=== PATIENT | male | born 1955 | race Caucasian/White ===

== ENCOUNTER 2018-11-30 06:02 | Inpatient (IN) | payer BC ==
[~2018-11-30 06:02] MED LIST: Acetaminophen 325 MG Tab PO SCH; CARBIDOPA PO SCH; LEVODOPA PO SCH; Lactated Ringers 1,000 ML IV SCH; Lidocaine 1%/Sod Bicarbonate in NS 8.4% 1 ML Syringe IDERM PRN; Pregabalin 25 MG Cap PO SCH; Sodium Chloride 0.9% 10 ML Syringe FLUSH PRN; oxyCODONE ER 10 MG TAB.ER PO SCH
[2018-11-30] MEDS ORDERED: Iodine/Sodium Iodide 2% Tincture 30 ML Bottle ONE (06:38)
[2018-11-30] MEDS ORDERED: Vancomycin 1 GM SDV ONE (06:38)
[2018-11-30] MEDS ORDERED: Bupivacaine 0.25% 10 ML SDV ONE ×3 (06:38→07:01)
[2018-11-30] MEDS ORDERED: ceFAZolin 1 GM Vial ONE ×2 (06:38→07:05)
[2018-11-30] MEDS ORDERED: Ondansetron 4 MG/2 ML SDV ONE (07:05)
[2018-11-30] MEDS ORDERED: Lactated Ringers 1,000 ML ONE (07:05)
[2018-11-30] MEDS ORDERED: Propofol 200 MG/20 ML SDV ONE ×2 (07:05→07:38)
[2018-11-30] MEDS ORDERED: Ketorolac 30 MG/ML SDV ONE (07:05)
[2018-11-30] MEDS ORDERED: Lidocaine 1% 4 ML ONE (07:06)
[2018-11-30] MEDS ORDERED: Midazolam 1 MG/ML 2 ML SDV ONE (07:06)
[2018-11-30] MEDS ORDERED: Ropivacaine 0.5% 5 MG/ML 30 ML SDV ONE (07:31)
[2018-11-30] MEDS ORDERED: EPINEPHrine 1 MG/1 ML Amp ONE (07:31)
--- NOTE | 2018-11-30 08:20 | PCM.PREANE ---
Preanesthetic Assessment - Procedure Proposed Procedure: Right Total Knee Arthroplasty - Anesthesia/Transfusion/Family Hx Anesthesia History: Prior Anesthesia Reaction Type of Anesthesia Reaction: Other (see below) ("I woke up angry") Transfusion History: No Prior Transfusion(s) - Review of Systems General: No Symptoms Pulmonary: No Symptoms Cardiovascular: Edema (Bilateral Edema noted to legs. Pitting Edema. Chronic/ unchanged per patient. ) Gastrointestinal: No Symptoms, Constipation (Concerned regarding postoperative constipation. Dr. Camargo/Mary, PAC aware. Plan in place to manage.) Neurological: Numbness (at times he notices numbness in his left leg. Worsened by sitting in one place to long. ), Pre-Existing Deficit (Parkinsons with tremors. Took his medication this moring. Lower back surgery in 1984, disc removal. ) Other: Reports: Anxiety - Physical Assessment NPO Status Date: 11/29/18 NPO Status Time: 21:00 Vital Signs: Last Vital Signs Temp 36.9 C 11/30/18 06:15 Pulse 72 11/30/18 06:15 Resp 16 11/30/18 06:15 BP 126/59 L 11/30/18 06:15 Pulse Ox 95 11/30/18 06:15 Height: 1.8 m Weight: 113.852 kg ASA Class: 3 Mental Status: Alert & Oriented x3 Airway Class: Mallampati = 3 Dentition: Reports: [place](s) (Caps noted to several of his front teeth. One temporary cap in place on a molar. All secure. ) Thyro-Mental Finger Breadths: 2 Mouth Opening Finger Breadths: 3 ROM/Head Extension: Full Lungs: Clear to Auscultation, Normal Respiratory Effort Cardiovascular: Regular Rate, Regular Rhythm - Lab Values: Laboratory Last Values PT 10.9 SECONDS (9.7-12.0) 11/30/18 06:30 INR 1.00 11/30/18 06:30 APTT 27 SECONDS (22-31) 11/30/18 06:30 MRSA (PCR) Negative 11/25/18 12:56 - Allergies Allergies/Adverse Reactions: Allergies Allergy/AdvReac Type Severity Reaction Status Date / Time No Known Allergies Allergy Verified 11/27/18 11:25 - Anesthesia Plan Pre-Op Medication Ordered: Anxiolytic - Acknowledgements Anesthesia Type Planned: Spinal, Regional Block (Post operative Adductor Canal Block for pain control. ) Pt an Appropriate Candidate for the Planned Anesthesia: Yes Alternatives and Risks of Anesthesia Discussed w Pt/Guardian: Yes Pt/Guardian Understands and Agrees with Anesthesia Plan: Yes Additional Comments: Dr. Dubois called regarding history of abnormal stress test and edema of lower extremities. Stress test was indeterminant per report, he has good daily activity as a rancher, he did see cardiology and had an ECHO done (results reviewed)EF was 60%, Dr. Dubois does not feel the patient needs to see cardiology prior to surgery. He denies chest pain/cardiac symptoms, EKG was done Sinus Rhythm at 68 bpm. Jg agrees this morning and would like to proceed with surgery as planned. He does report sleeping in a recliner which is more comfortable with his Parkinson disease. He is agreeable to a spinal anesthetic. PreAnesthesia Questionnaire HEENT History: Reports: None Cardiovascular History: Reports: High Cholesterol Respiratory History: Reports: Other (See Below) Other Respiratory History: wheezing Genitourinary History: Reports: Urinary Incontinence, Other (See Below) Other Genitourinary History: frequency BAR ROLLER History: Reports: None Musculoskeletal History: Reports: Osteoarthritis Neurological History: Reports: Parkinson's Psychiatric History: Reports: Anxiety Endocrine/Metabolic History: Reports: None Hematologic History: Reports: None Immunologic History: Reports: None Oncologic (Cancer) History: Reports: None - Past Surgical History Head Surgeries/Procedures: Reports: None HEENT Surgical History: Reports: None Cardiovascular Surgical History: Reports: None Respiratory Surgical History: Reports: None GI Surgical History: Reports: Colonoscopy Female Surgical History: Reports: None Male Surgical History: Reports: None Endocrine Surgical History: Reports: None Other Neurological Surgeries/Procedures: back surgery- discectomy Musculoskeletal Surgical History: Reports: None Oncologic Surgical History: Reports: None Dermatological Surgical History: Reports: Other (See Below) - SUBSTANCE USE Smoking Status *Q: Former Smoker Tobacco Use Within Last Twelve Months: Snuff/Dip Recreational Drug Use History: No - HOME MEDS Home Medications: Home Meds Aspirin [[place] Aspirin] 81 mg PO DAILY 11/27/18 [History] Carbidopa/Levodopa [Carbidopa-Levodopa 25-250] 1 tab PO QID 11/27/18 [History] Cholecalciferol (Vitamin D3) [Vitamin D3] 5,000 unit PO DAILY 11/27/18 [History] Losartan [Cozaar] 50 mg PO DAILY 11/27/18 [History] Magnesium Oxide [Magnesium] 400 mg PO DAILY 11/27/18 [History] Sertraline HCl 100 mg PO DAILY 11/27/18 [History] Simvastatin 20 mg PO DAILY 11/27/18 [History] rOPINIRole HCl [Ropinirole ER] 12 mg PO QAM 11/27/18 [History] - CURRENT (IN HOUSE) MEDS Current Meds: Current Medications Acetaminophen (Tylenol) 975 mg PO ONETIME [facility] Stop: 11/30/18 13:00 Last Admin: 11/30/18 06:26 Dose: 975 mg Bisacodyl (Dulcolax) 5 mg PO DAILY PRN PRN Reason: Constipation Cyclobenzaprine HCl (Flexeril) 10 mg PO BID PRN PRN Reason: Spasms Docusate Sodium (Colace) 100 mg PO BID FLY Famotidine (Pepcid) 20 mg PO Q12H [facility] Lactated Ringer's (Ringers, Lactated) 1,000 mls @ 125 mls/hr IV ASDIRECTED [facility] Stop: 11/30/18 23:00 Last Admin: 11/30/18 06:49 Dose: 125 mls/hr Cefazolin Sodium/Dextrose 2 gm (/ Premix) 50 mls @ 100 mls/hr IV Q8H [facility] Stop: 12/01/18 07:29 Ketorolac Tromethamine (Toradol) 15 mg IVPUSH Q6H PRN PRN Reason: Pain Lidocaine/Sodium Bicarbonate (Buffered Lidocaine 1% In Ns 8.4%) 0.25 ml IDERM ONETIME PRN PRN Reason: Prior to IV Start Stop: 11/30/18 18:00 Last Admin: 11/30/18 06:49 Dose: 0.25 ml Magnesium Hydroxide (Milk Of Magnesia) 30 ml PO BID PRN PRN Reason: Constipation Morphine Sulfate (Morphine) 2 mg IVPUSH Q2H PRN PRN Reason: Breakthrough Pain Naloxone HCl (Narcan) 0.1 mg IVPUSH Q5M PRN PRN Reason: Oversedation Ondansetron HCl (Zofran) 4 mg IVPUSH Q6H PRN PRN Reason: Nausea/Vomiting Oxycodone HCl (Oxycontin) 10 mg PO ONETIME [facility] Stop: 11/30/18 13:00 Last Admin: 11/30/18 06:27 Dose: 10 mg Oxycodone/Acetaminophen (Percocet 325-5 Mg) 1 - 2 tab PO Q4H PRN PRN Reason: Pain Pregabalin (Lyrica) 50 mg PO ONETIME [facility] Stop: 11/30/18 13:00 Last Admin: 11/30/18 06:26 Dose: 50 mg Rivaroxaban (Xarelto) 10 mg PO DAILY [facility] Senna (Senna) 8.6 mg PO BID PRN PRN Reason: Constipation Sodium Chloride (Saline Flush) 10 ml FLUSH ASDIRECTED PRN PRN Reason: Keep Vein Open Stop: 11/30/18 23:00 Discontinued Medications Acetaminophen (Tylenol) 975 mg PO ONETIME FLY Bupivacaine HCl (Sensorcaine-Mpf 0.25%) Confirm Administered Dose 10 ml .ROUTE .STK-MED ONE Stop: 11/30/18 06:39 Bupivacaine HCl (Sensorcaine-Mpf 0.25%) Confirm Administered Dose 20 ml .ROUTE .STK-MED ONE Stop: 11/30/18 06:59 Bupivacaine HCl (Sensorcaine-Mpf 0.25%) Confirm Administered Dose 10 ml .ROUTE .STK-MED ONE Stop: 11/30/18 07:02 Cefazolin Sodium (Ancef) Confirm Administered Dose 2 gm .ROUTE .STK-MED ONE Stop: 11/30/18 06:39 Cefazolin Sodium (Ancef) Confirm Administered Dose 2 gm .ROUTE .STK-MED ONE Stop: 11/30/18 07:06 Morphine Sulfate 8 mg/Epinephrine HCl 0.3 mg/Cefuroxime Sodium 750 mg/Ketorolac Tromethamine 30 mg/Sodium Chloride 27.9 ml 0 mg .XX ONETIME ONE Stop: 11/30/18 07:46 Epinephrine HCl (Adrenalin) Confirm Administered Dose 1 mg .ROUTE .STK-MED ONE Stop: 11/30/18 07:32 Lactated Ringer's (Ringers, Lactated) Confirm Administered Dose 1,000 mls @ as directed .ROUTE .STK-MED ONE Stop: 11/30/18 07:06 Lidocaine HCl (Xylocaine-Mpf 1%) Confirm Administered Dose 4 mls @ as directed .ROUTE .STK-MED ONE Stop: 11/30/18 07:07 Iodine (Iodine 2% Mild Tincture) Confirm Administered Dose 30 ml .ROUTE .STK- MED ONE Stop: 11/30/18 06:39 Ketorolac Tromethamine (Toradol) Confirm Administered Dose 30 mg .ROUTE .STK- MED ONE Stop: 11/30/18 07:06 Midazolam HCl (Versed 1 Mg/Ml) Confirm Administered Dose 2 mg .ROUTE .STK-MED ONE Stop: 11/30/18 07:07 Ondansetron HCl (Zofran) Confirm Administered Dose 4 mg .ROUTE .STK-MED ONE Stop: 11/30/18 07:06 Oxycodone HCl (Oxycontin) 10 mg PO ONETIME FLY Propofol (Diprivan 20 Ml) Confirm Administered Dose 400 mg .ROUTE .ST-MED ONE Stop: 11/30/18 07:06 Propofol (Diprivan 20 Ml) Confirm Administered Dose 200 mg .ROUTE .STK-MED ONE Stop: 11/30/18 07:39 Ropivacaine (Naropin 0.5%) Confirm Administered Dose 30 ml .ROUTE .ST-MED ONE Stop: 11/30/18 07:32 Tranexamic Acid (Cyklokapron) Confirm Administered Dose 1,000 mg .ROUTE .STK- MED ONE Stop: 11/30/18 06:38 Vancomycin HCl (Vancomycin) Confirm Administered Dose 1 gm .ROUTE .STK-MED ONE Stop: 11/30/18 06:39
[2018-11-30] MEDS ORDERED: Ondansetron 4 MG/2 ML SDV IVPUSH PRN ×2 (08:37→09:00)
[2018-11-30] MEDS ORDERED: diphenhydrAMINE 50 MG/ML SDV IVPUSH PRN (08:37)
[2018-11-30] MEDS: Morphine 8 MG, EPINEPHrine 0.3 MG, Cefuroxime 750 MG, Ketorolac 30 MG, Sodium Chloride ... ONE ×10 (08:45→15:06)
[2018-11-30] MEDS ORDERED: Naloxone 0.4 MG/ML SDV IVPUSH PRN (09:00)
[2018-11-30] MEDS ORDERED: Sennosides 8.6 MG Tab PO PRN (09:00)
[2018-11-30] MEDS ORDERED: Bisacodyl 5 MG Tab PO PRN (09:00)
[2018-11-30] MEDS ORDERED: Magnesium Hydroxide 400 MG/5 ML Susp 30 ML Cup PO PRN (09:00)
[2018-11-30] MEDS ORDERED: Morphine 2 MG/ML Syringe IVPUSH PRN (09:00)
--- NOTE | 2018-11-30 09:39 | PCM.POSTAN ---
POST ANESTHESIA ASSESSMENT - MENTAL STATUS Mental Status: Alert, Oriented - VITAL SIGNS Vital Signs: Last Vital Signs Temp 36.9 C 11/30/18 06:15 Pulse 72 11/30/18 06:15 Resp 16 11/30/18 06:15 BP 126/59 L 11/30/18 06:15 Pulse Ox 95 11/30/18 06:15 - RESPIRATORY Respiratory Status: Respiratory Rate WNL, Airway Patent, O2 Saturation Stable, Supplemental Oxygen - CARDIOVASCULAR CV Status: Pulse Rate WNL, Blood Pressure Stable - GASTROINTESTINAL GI Status: No Symptoms - PAIN Pain Score: 0 - POST OP HYDRATION Hydration Status: Adequate & Stable
--- NOTE | 2018-11-30 09:42 | PCM.SN ---
- Free Text/Narrative Note: Right selective femoral nerve block at the adductor canal for post-procedure pain control Time Out: 923 Start: 923 End: 929 Chart reviewed. Consent signed. Questions answered. Appropriate monitors applied. Time out performed. Right mid-shaft femur evaluated with ultrasound. Scanning medially femur, I was able to identify the femoral artery in the adductor canal. The saphenous nerve was lateral to the artery. The skin was prepped lateral to the ultrasound probe with chlorahexadine. The 21ga 4 insulated block needle was inserted under direct ultrasound guidance into the adductor canal. 20mL of 0.5% ropivacaine with 1:200,000 epinephrine was injected cirmcumferentially about the nerve with intermittent negative aspiration every 5mL. Patient tolerated the procedure well. No complications noted. See pictures on progress note and vital signs on nurses notes. Block completed postoperatively. Luis Hernandez CRNA
--- NOTE | 2018-11-30 10:35 | CR ---
Right knee: AP and lateral views of the right knee were obtained. Comparison: No prior knee exam. Knee prosthesis is seen. Components are aligned. Underlying bony structures are intact. Soft tissue air is noted from the surgical procedure. Impression: 1. Satisfactory postoperative radiographic appearance of recently placed right knee prosthesis. Diagnostic code #2
[2018-11-30] MEDS: Acetaminophen/oxyCODONE 325-5 MG Tab PO PRN ×2 (12:43→18:06)
[2018-11-30] MEDS ORDERED: Carbidopa/Levodopa 25-250 MG TAB PO SCH (13:00)
[2018-11-30] MEDS: ceFAZolin 2 GM in Premix Bag 1 BAG IV SCH (15:00)
[2018-11-30] MEDS: LEVODOPA PO SCH ×3 (15:01→20:29)
[2018-11-30] MEDS: CARBIDOPA PO SCH ×3 (15:01→20:29)
[2018-11-30] MEDS: Ketorolac 15 MG/ML SDV IVPUSH PRN (18:05)
[2018-11-30] MEDS: Famotidine 20 MG Tab PO SCH (20:27)
[2018-11-30] MEDS: Docusate Sodium 100 MG Cap PO SCH (20:28)
[2018-11-30] MEDS ORDERED: Simvastatin 20 MG Tab PO SCH (21:00)
[2018-12-01] MEDS: ceFAZolin 2 GM in Premix Bag 1 BAG IV SCH ×2 (00:16→06:01)
[2018-12-01] MEDS: CARBIDOPA PO SCH ×4 (00:17→15:44)
[2018-12-01] MEDS: LEVODOPA PO SCH ×4 (00:17→15:44)
[2018-12-01] MEDS: Cyclobenzaprine 10 MG Tab PO PRN ×2 (00:26→12:48)
[2018-12-01] MEDS: Acetaminophen/oxyCODONE 325-5 MG Tab PO PRN ×3 (03:05→13:09)
--- NOTE | 2018-12-01 07:13 | PCM.CONS ---
H&P History of Present Illness - General Date of Service: 12/01/18 Admit Problem/Dx: Admission Diagnosis/Problem Admission Diagnosis/Problem Osteoarthritis of knee Source of Information: Patient, Family, Old Records, Provider, RN Notes Reviewed History Limitations: Reports: Physical Impairment - History of Present Illness Initial Comments - Free Text/Narative: This is a 62 yo white male with past medical hx/o HTN, HLD, OA/DJD, PD, RLS, OAB , Depression and Class II Obesity who recently underwent RTKA. He is doing relatively well POD#1. His pain is controlled and denies any acute issues. His Hgb is stable at 13.9. The hospitalist services were consulted for post operative care. - Related Data Allergies/Adverse Reactions: Allergies Allergy/AdvReac Type Severity Reaction Status Date / Time No Known Allergies Allergy Verified 11/30/18 10:46 Home Medications: Home Meds Aspirin [[place] Aspirin] 81 mg PO DAILY 11/27/18 [History] Cholecalciferol (Vitamin D3) [Vitamin D3] 5,000 unit PO DAILY 11/27/18 [History] Losartan [Cozaar] 50 mg PO DAILY 11/27/18 [History] Magnesium Oxide [Magnesium] 500 mg PO DAILY 11/27/18 [History] Sertraline HCl 100 mg PO DAILY 11/27/18 [History] Simvastatin 20 mg PO DAILY 11/27/18 [History] rOPINIRole HCl [Ropinirole ER] 12 mg PO QAM 11/27/18 [History] Carbidopa/Levodopa [Carbidopa-Levodopa 25-250] 1 tab PO 5XDAY 11/30/18 [History] Acetaminophen/oxyCODONE [Percocet 325-5 MG] 1 - 2 tab PO Q4H PRN #60 tablet [Rx] Bisacodyl [Dulcolax] 5 mg PO DAILY PRN tablet 12/01/18 [Rx] Cyclobenzaprine [Flexeril] 10 mg PO BID PRN #30 tablet 12/01/18 [Rx] Docusate Sodium [Colace] 100 mg PO BID cap 12/01/18 [Rx] Famotidine [Pepcid] 20 mg PO Q12H tablet 12/01/18 [Rx] Magnesium Hydroxide [Milk of Magnesia] 30 ml PO BID PRN cup 12/01/18 [Rx] Rivaroxaban [Xarelto] 10 mg PO DAILY #30 tablet 12/01/18 [Rx] Sennosides [Senna] 8.6 mg PO BID PRN tablet 12/01/18 [Rx] Past Medical History HEENT History: Reports: None Cardiovascular History: Reports: High Cholesterol Respiratory History: Reports: Other (See Below) Other Respiratory History: wheezing Genitourinary History: Reports: Urinary Incontinence, Other (See Below) Other Genitourinary History: frequency 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 Musculoskeletal History: Reports: Osteoarthritis Neurological History: Reports: Parkinson's Psychiatric History: Reports: Anxiety Endocrine/Metabolic History: Reports: None Hematologic History: Reports: None Immunologic History: Reports: None Oncologic (Cancer) History: Reports: None - Past Surgical History Head Surgeries/Procedures: Reports: None HEENT Surgical History: Reports: None Cardiovascular Surgical History: Reports: None Respiratory Surgical History: Reports: None GI Surgical History: Reports: Colonoscopy Male Surgical History: Reports: None Endocrine Surgical History: Reports: None Other Neurological Surgeries/Procedures: back surgery- discectomy Musculoskeletal Surgical History: Reports: None Oncologic Surgical History: Reports: None Dermatological Surgical History: Reports: Other (See Below) Social & Family History - Family History Family Medical History: Noncontributory - Tobacco Use Smoking Status *Q: Never Smoker Used Tobacco, but Quit: Yes Month/Year Tobacco Last Used: 1974 Second Hand Smoke Exposure: No - Caffeine Use Caffeine Use: Reports: None - Alcohol Use Days Per Week of Alcohol Use: 2 Number of Drinks Per Day: 3 Total Drinks Per Week: 6 - Recreational Drug Use Recreational Drug Use: No Drug Use in Last 12 Months: No H&P Review of Systems - Review of Systems: Review Of Systems: See Below General: Denies: Fever, Chills, Fatigue HEENT: Reports: No Symptoms Pulmonary: Denies: Shortness of Breath Cardiovascular: Denies: Chest Pain, Dyspnea on Exertion, Lightheadedness Gastrointestinal: Denies: Abdominal Pain, Nausea, Vomiting Musculoskeletal: Reports: No Symptoms Skin: Reports: No Symptoms Psychiatric: Denies: Depression, Anxiety Neurological: Reports: Difficulty Walking, Weakness, Gait Disturbance. Denies: Confusion Hematologic/Lymphatic: Reports: No Symptoms Immunologic: Reports: No Symptoms Exam - Exam Exam: See Below - Vital Signs Vital Signs: Last Vital Signs Temp 37.1 C 12/01/18 03:04 Pulse 81 12/01/18 03:04 Resp 20 12/01/18 03:04 BP 139/83 12/01/18 03:04 Pulse Ox 92 L 12/01/18 03:04 Weight: 116.165 kg - Exam General: Alert, Oriented, Cooperative HEENT: Conjunctiva Clear, EACs Clear, EOMI, Hearing Intact, Mucosa Moist & [place] , Nares Patent, Normal Nasal Septum, Posterior Pharynx Clear, Pupils Equal, Pupils Reactive Neck: Supple, Trachea Midline Lungs: Clear to Auscultation, Normal Respiratory Effort, Decreased Breath Sounds Cardiovascular: Regular Rate, Regular Rhythm GI/Abdominal Exam: Normal Bowel Sounds, Soft, Non-Tender, No Organomegaly, No Distention, No Abnormal Bruit (Male) Exam: Deferred Rectal (Males) Exam: Deferred Back Exam: Normal Inspection, Decreased Range of Motion Extremities: Normal Inspection, Normal Range of Motion, Non-Tender, No Pedal Edema, Normal Capillary Refill Peripheral Pulses: 2+: Dorsalis Pedis (L), Dorsalis Pedis (R) Skin: Warm, Dry, Intact Skin Alteration Location (Drawings Not To Scale): 1 - dressed, covered and wrapped with polar care Neuro Extensive - Mental Status: Oriented x3, Normal Cognition, Memory Intact Neuro Extensive - Motor, Sensory, Reflexes: CN II-XII Intact, Abnormal Gait, Tremor Psychiatric: Alert, Normal Mood. No: Normal Affect - Patient Data Lab Results Last 24 hrs: Laboratory Results - last 24 hr 12/01/18 12/01/18 Range/Units 05:30 05:30 WBC 5.96 (4.23-9.07) K/mm3 RBC 4.53 L (4.63-6.08) M/mm3 Hgb 13.9 (13.7-17.5) gm/dl Hct 42.6 (40.1-51.0) % MCV 94.0 H (79.0-92.2) fl MCH 30.7 (25.7-32.2) pg MCHC 32.6 (32.2-35.5) g/dl RDW Std Deviation 46.1 H (35.1-43.9) fL Plt Count 190 (163-337) K/mm3 MPV 9.5 (9.4-12.3) fl Sodium 137 (136-145) mEq/L Potassium 4.2 (3.5-5.1) mEq/L Chloride 102 (98-107) mEq/L Carbon Dioxide 26 (21-32) mEq/L Anion Gap 13.2 (5-15) BUN 23 H (7-18) mg/dL Creatinine 1.2 (0.7-1.3) mg/dL Est Cr Clr Drug Dosing 66.24 mL/min Estimated GFR (MDRD) > 60 (>60) mL/min BUN/Creatinine Ratio 19.2 H (14-18) Glucose 106 (80-115) mg/dL Calcium 8.3 L (8.5-10.1) mg/dL Total Bilirubin 1.0 (0.2-1.0) mg/dL AST 17 (15-37) U/L Alkaline Phosphatase 64 (46-116) U/L Total Protein 7.1 (6.4-8.2) g/dl Albumin 3.4 (3.4-5.0) g/dl Globulin 3.7 gm/dL Albumin/Globulin Ratio 0.9 L (1-2) Result Diagrams: 12/01/18 05:30 12/01/18 05:30 Consult PN Assessment/Plan POD#: 1 Procedures: Procedures ASSAY OF BLOOD/URIC ACID (11/04/18) ASSAY OF CK (CPK) (06/24/13) ASSAY OF LACTIC ACID (11/04/18) ASSAY OF PSA TOTAL (06/24/13) ASSAY THYROID STIM HORMONE (07/12/14) C-REACTIVE PROTEIN (11/04/18) CARDIOVASCULAR STRESS TEST (01/12/18) COMPLETE CBC W/AUTO DIFF WBC (11/04/18) COMPREHEN METABOLIC PANEL (11/04/18) GLYCOSYLATED HEMOGLOBIN TEST (11/04/18) HT MUSCLE IMAGE SPECT MULT (01/12/18) LACTATE (LD) (LDH) ENZYME (06/24/13) LIPID PANEL (11/04/18) ROUTINE VENIPUNCTURE (11/04/18) UR ALBUMIN QUANTITATIVE (07/12/14) UR ALBUMIN SEMIQUANTITATIVE (06/24/13) URINALYSIS AUTO W/O SCOPE (11/04/18) URINALYSIS AUTO W/SCOPE (07/12/14) VITAMIN B-12 (11/04/18) Problem List Initiated/Reviewed/Updated: Yes Plan: Assessment: Acute: RTKA - POD #1 - Defer Management to Primary Team Post-Operative Care - Patient is clinically and hemodynamically stable - Hgb is at 13.9 - He is drinking and eating well Chronic: HTN, HLD, OA/DJD, PD, RLS, OAB/Urinary Incontinence, Depression and Obesity Class II Plan: From the hospitalist standpoint, patient is doing relatively well. We recommend to continue current treatment and resume home medications. Any changes or further recommendations will be based on the patient course. Thank you for the opportunity to participate in the management of this patient. We will follow him along with you. Requesting Provider: Dr. Camargo Date Consult Requested: 11/30/18 Reason for Consult: Post Operative Care Patient History Reviewed: Yes Admission H&P Reviewed: Yes Notified Requestor: Yes Time Spent (in minutes): 15
[2018-12-01] MEDS ORDERED: ROPINIROLE 12 MG PO SCH (08:00)
--- NOTE | 2018-12-01 08:16 | PCM48HPAN ---
Post Anesthesia Note - EVALUATION WITHIN 48HRS OF ANESTHETIC Vital Signs in Normal Range: Yes Patient Participated in Evaluation: Yes Respiratory Function Stable: Yes Airway Patent: Yes Cardiovascular Function Stable: Yes Hydration Status Stable: Yes Pain Control Satisfactory: Yes Nausea and Vomiting Control Satisfactory: Yes Mental Status Recovered: Yes (pain on and off- getting ready to shower) Vital Signs: Last Vital Signs Temp 98.8 F 12/01/18 03:04 Pulse 81 12/01/18 03:04 Resp 20 12/01/18 03:04 BP 139/83 12/01/18 03:04 Pulse Ox 92 L 12/01/18 03:04
--- NOTE | 2018-12-01 08:37 | PCM.SURGPN ---
- General Info Date of Service: 12/01/18 POD#: 1 Functional Status: Reports: Tolerating Diet, Ambulating, Urinating, Incentive Spirometry - Patient Data Vitals - Most Recent: Last Vital Signs Temp 98.8 F 12/01/18 03:04 Pulse 81 12/01/18 03:04 Resp 20 12/01/18 03:04 BP 139/83 12/01/18 03:04 Pulse Ox 92 L 12/01/18 03:04 Weight - Most Recent: 256 lb 1.6 oz I&O - Last 24 Hours: Intake & Output 11/30/18 12/01/18 12/01/18 22:59 06:59 14:59 Intake Total 1710 450 Output Total 180 600 Balance 1530 -150 Lab Results Last 24 Hrs: Laboratory Results - last 24 hr 12/01/18 12/01/18 Range/Units 05:30 05:30 WBC 5.96 (4.23-9.07) K/mm3 RBC 4.53 L (4.63-6.08) M/mm3 Hgb 13.9 (13.7-17.5) gm/dl Hct 42.6 (40.1-51.0) % MCV 94.0 H (79.0-92.2) fl MCH 30.7 (25.7-32.2) pg MCHC 32.6 (32.2-35.5) g/dl RDW Std Deviation 46.1 H (35.1-43.9) fL Plt Count 190 (163-337) K/mm3 MPV 9.5 (9.4-12.3) fl Sodium 137 (136-145) mEq/L Potassium 4.2 (3.5-5.1) mEq/L Chloride 102 (98-107) mEq/L Carbon Dioxide 26 (21-32) mEq/L Anion Gap 13.2 (5-15) BUN 23 H (7-18) mg/dL Creatinine 1.2 (0.7-1.3) mg/dL Est Cr Clr Drug Dosing 66.24 mL/min Estimated GFR (MDRD) > 60 (>60) mL/min BUN/Creatinine Ratio 19.2 H (14-18) Glucose 106 (80-115) mg/dL Calcium 8.3 L (8.5-10.1) mg/dL Total Bilirubin 1.0 (0.2-1.0) mg/dL AST 17 (15-37) U/L ALT 8 L (16-63) U/L Alkaline Phosphatase 64 (46-116) U/L Total Protein 7.1 (6.4-8.2) g/dl Albumin 3.4 (3.4-5.0) g/dl Globulin 3.7 gm/dL Albumin/Globulin Ratio 0.9 L (1-2) Med Orders - Current: Current Medications Aspirin (Aspirin) 81 mg PO DAILY [facility] Bisacodyl (Dulcolax) 5 mg PO DAILY PRN PRN Reason: Constipation Cholecalciferol (Vitamin D3) 5,000 unit PO DAILY [facility] Cyclobenzaprine HCl (Flexeril) 10 mg PO BID PRN PRN Reason: Spasms Last Admin: 12/01/18 00:26 Dose: 10 mg Docusate Sodium (Colace) 100 mg PO BID [facility] Last Admin: 11/30/18 20:28 Dose: 100 mg Famotidine (Pepcid) 20 mg PO Q12H [facility] Last Admin: 11/30/18 20:27 Dose: 20 mg Ketorolac Tromethamine (Toradol) 15 mg IVPUSH Q6H PRN PRN Reason: Pain Last Admin: 11/30/18 18:05 Dose: 15 mg Magnesium Hydroxide (Milk Of Magnesia) 30 ml PO BID PRN PRN Reason: Constipation Last Admin: 12/01/18 05:52 Dose: 30 ml Magnesium Oxide (Magnesium Oxide) 400 mg PO DAILY [facility] Morphine Sulfate (Morphine) 2 mg IVPUSH Q2H PRN PRN Reason: Breakthrough Pain Naloxone HCl (Narcan) 0.1 mg IVPUSH Q5M PRN PRN Reason: Oversedation Ondansetron HCl (Zofran) 4 mg IVPUSH Q6H PRN PRN Reason: Nausea/Vomiting Oxycodone/Acetaminophen (Percocet 325-5 Mg) 1 - 2 tab PO Q4H PRN PRN Reason: Pain Last Admin: 12/01/18 03:05 Dose: 1 tab Ropinirole Er 12 Mg 0 each PO QAM [facility] Carbidopa/Levodopa (25-250 Mg Tab Ptom) 0 each PO 1500,2000 [facility] Last Admin: 11/30/18 20:29 Dose: 1 each Carbidopa/Levodopa (25-250 Mg Tab Ptom) 0 each PO 0100,0600,1000 [facility] Last Admin: 12/01/18 05:52 Dose: 1 each Rivaroxaban (Xarelto) 10 mg PO DAILY [facility] Senna (Senna) 8.6 mg PO BID PRN PRN Reason: Constipation Sertraline HCl (Zoloft) 100 mg PO DAILY [facility] Simvastatin (Zocor) 20 mg PO BEDTIME [facility] Last Admin: 11/30/18 20:29 Dose: 20 mg Discontinued Medications Acetaminophen (Tylenol) 975 mg PO ONETIME [facility] Acetaminophen (Tylenol) 975 mg PO ONETIME [facility] Stop: 11/30/18 13:00 Last Admin: 11/30/18 06:26 Dose: 975 mg Bupivacaine HCl (Sensorcaine-Mpf 0.25%) Confirm Administered Dose 10 ml .ROUTE .STK-MED ONE Stop: 11/30/18 06:39 Last Admin: 11/30/18 08:45 Dose: 30 ml Bupivacaine HCl (Sensorcaine-Mpf 0.25%) Confirm Administered Dose 20 ml .ROUTE .STK-MED ONE Stop: 11/30/18 06:59 Bupivacaine HCl (Sensorcaine-Mpf 0.25%) Confirm Administered Dose 10 ml .ROUTE .STK-MED ONE Stop: 11/30/18 07:02 Cefazolin Sodium (Ancef) Confirm Administered Dose 2 gm .ROUTE .STK-MED ONE Stop: 11/30/18 06:39 Last Admin: 11/30/18 08:41 Dose: 2 gm Cefazolin Sodium (Ancef) Confirm Administered Dose 2 gm .ROUTE .STK-MED ONE Stop: 11/30/18 07:06 Morphine Sulfate 8 mg/Epinephrine HCl 0.3 mg/Cefuroxime Sodium 750 mg/Ketorolac Tromethamine 30 mg/Sodium Chloride 27.9 ml 0 mg .XX ONETIME ONE Stop: 11/30/18 07:46 Last Admin: 11/30/18 15:06 Dose: Not Given Diphenhydramine HCl (Benadryl) 25 mg IVPUSH Q6H PRN PRN Reason: Pruritis Stop: 11/30/18 16:00 Epinephrine HCl (Adrenalin) Confirm Administered Dose 1 mg .ROUTE .STK-MED ONE Stop: 11/30/18 07:32 Lactated Ringer's (Ringers, Lactated) 1,000 mls @ 125 mls/hr IV ASDIRECTED [facility] Stop: 11/30/18 23:00 Last Admin: 11/30/18 06:49 Dose: 125 mls/hr Cefazolin Sodium/Dextrose 2 gm (/ Premix) 50 mls @ 100 mls/hr IV Q8H [facility] Stop: 12/01/18 07:29 Last Admin: 12/01/18 06:01 Dose: 100 mls/hr Lactated Ringer's (Ringers, Lactated) Confirm Administered Dose 1,000 mls @ as directed .ROUTE .STK-MED ONE Stop: 11/30/18 07:06 Lidocaine HCl (Xylocaine-Mpf 1%) Confirm Administered Dose 4 mls @ as directed .ROUTE .STK-MED ONE Stop: 11/30/18 07:07 Iodine (Iodine 2% Mild Tincture) Confirm Administered Dose 30 ml .ROUTE .STK- MED ONE Stop: 11/30/18 06:39 Last Admin: 11/30/18 08:39 Dose: 18 ml Ketorolac Tromethamine (Toradol) Confirm Administered Dose 30 mg .ROUTE .STK- MED ONE Stop: 11/30/18 07:06 Lidocaine/Sodium Bicarbonate (Buffered Lidocaine 1% In Ns 8.4%) 0.25 ml IDERM ONETIME PRN PRN Reason: Prior to IV Start Stop: 11/30/18 18:00 Last Admin: 11/30/18 06:49 Dose: 0.25 ml Midazolam HCl (Versed 1 Mg/Ml) Confirm Administered Dose 2 mg .ROUTE .STK-MED ONE Stop: 11/30/18 07:07 Ondansetron HCl (Zofran) Confirm Administered Dose 4 mg .ROUTE .STK-MED ONE Stop: 11/30/18 07:06 Ondansetron HCl (Zofran) 4 mg IVPUSH ONETIME PRN PRN Reason: Nausea/Vomiting Stop: 11/30/18 13:00 Oxycodone HCl (Oxycontin) 10 mg PO ONETIME [facility] Oxycodone HCl (Oxycontin) 10 mg PO ONETIME [facility] Stop: 11/30/18 13:00 Last Admin: 11/30/18 06:27 Dose: 10 mg Carbidopa/Levodopa (25-250 Mg Tab) 0 each PO QID [facility] Last Admin: 11/30/18 11:44 Dose: 1 each Pregabalin (Lyrica) 50 mg PO ONETIME [facility] Stop: 11/30/18 13:00 Last Admin: 11/30/18 06:26 Dose: 50 mg Propofol (Diprivan 20 Ml) Confirm Administered Dose 400 mg .ROUTE .STK-MED ONE Stop: 11/30/18 07:06 Propofol (Diprivan 20 Ml) Confirm Administered Dose 200 mg .ROUTE .STK-MED ONE Stop: 11/30/18 07:39 Ropivacaine (Naropin 0.5%) Confirm Administered Dose 30 ml .ROUTE .STK-MED ONE Stop: 11/30/18 07:32 Sodium Chloride (Saline Flush) 10 ml FLUSH ASDIRECTED PRN PRN Reason: Keep Vein Open Stop: 11/30/18 23:00 Tranexamic Acid (Cyklokapron) Confirm Administered Dose 1,000 mg .ROUTE .STK- MED ONE Stop: 11/30/18 06:38 Last Admin: 11/30/18 08:52 Dose: 1,000 mg Vancomycin HCl (Vancomycin) Confirm Administered Dose 1 gm .ROUTE .STK-MED ONE Stop: 11/30/18 06:39 Last Admin: 11/30/18 08:49 Dose: 1 gm - Exam Wound/Incisions: Dressing Dry and Intact General: Alert, Cooperative, No Acute Distress Lungs: Normal Respiratory Effort Extremities: Other (Refugio's negative for RLE. Mod effusion right knee. ) - Problem List Review Problem List Initiated/Reviewed/Updated: Yes - My Orders Last 24 Hours: Active Orders 24 hr Category Date Time Status Patient Status [ADT] Routine ADT 11/30/18 09:55 Active Cooling Warming Measures [RC] ASDIRECTED Care 11/30/18 08:37 Inactive Oxygen Therapy [RC] ASDIRECTED Care 11/30/18 08:37 Active Pulse Oximetry [RC] ASDIRECTED Care 11/30/18 08:37 Active Ready for Discharge [RC] PER UNIT ROUTINE Care 12/01/18 08:35 Ordered Vital Signs [RC] Q15M Care 11/30/18 08:37 Inactive Regular Diet [DIET] Diet 11/30/18 Lunch Active Acetaminophen/oxyCODONE [Percocet 325-5 MG] Med 11/30/18 09:00 Active 1 - 2 tab PO Q4H PRN Aspirin Med 12/01/18 09:00 Active 81 mg PO DAILY Bisacodyl [Dulcolax] Med 11/30/18 09:00 Active 5 mg PO DAILY PRN Cholecalciferol (Vitamin D3) [Vitamin D3] Med 12/01/18 09:00 Active 5,000 unit PO DAILY Cyclobenzaprine [Flexeril] Med 11/30/18 09:00 Active 10 mg PO BID PRN Docusate Sodium [Colace] Med 11/30/18 21:00 Active 100 mg PO BID Famotidine [Pepcid] Med 11/30/18 21:00 Active 20 mg PO Q12H Ketorolac [Toradol] Med 11/30/18 09:00 Active 15 mg IVPUSH Q6H PRN Magnesium Hydroxide [Milk of Magnesia] Med 11/30/18 09:00 Active 30 ml PO BID PRN Magnesium Oxide Med 12/01/18 09:00 Active 400 mg PO DAILY Morphine Med 11/30/18 09:00 Active 2 mg IVPUSH Q2H PRN Naloxone [Narcan] Med 11/30/18 09:00 Active 0.1 mg IVPUSH Q5M PRN Ondansetron [Zofran] Med 11/30/18 09:00 Active 4 mg IVPUSH Q6H PRN Patient's Own Medication [Ptom] Med 12/01/18 01:00 Active 0 each PO 0100,0600,1000 Patient's Own Medication [Ptom] Med 11/30/18 12:30 Active 0 each PO 1500,2000 Patient's Own Medication [Ptom] Med 12/01/18 08:00 Active 0 each PO QAM Rivaroxaban [Xarelto] Med 12/01/18 09:00 Active 10 mg PO DAILY Sennosides [Senna] Med 11/30/18 09:00 Active 8.6 mg PO BID PRN Sertraline [Zoloft] Med 12/01/18 09:00 Active 100 mg PO DAILY Simvastatin [Zocor] Med 11/30/18 21:00 Active 20 mg PO BEDTIME Medication Orders Aspirin (Aspirin) 81 mg PO DAILY [facility] Bisacodyl (Dulcolax) 5 mg PO DAILY PRN PRN Reason: Constipation Cholecalciferol (Vitamin D3) 5,000 unit PO DAILY [facility] Cyclobenzaprine HCl (Flexeril) 10 mg PO BID PRN PRN Reason: Spasms Last Admin: 12/01/18 00:26 Dose: 10 mg Docusate Sodium (Colace) 100 mg PO BID [facility] Last Admin: 11/30/18 20:28 Dose: 100 mg Famotidine (Pepcid) 20 mg PO Q12H [facility] Last Admin: 11/30/18 20:27 Dose: 20 mg Ketorolac Tromethamine (Toradol) 15 mg IVPUSH Q6H PRN PRN Reason: Pain Last Admin: 11/30/18 18:05 Dose: 15 mg Magnesium Hydroxide (Milk Of Magnesia) 30 ml PO BID PRN PRN Reason: Constipation Last Admin: 12/01/18 05:52 Dose: 30 ml Magnesium Oxide (Magnesium Oxide) 400 mg PO DAILY [facility] Morphine Sulfate (Morphine) 2 mg IVPUSH Q2H PRN PRN Reason: Breakthrough Pain Naloxone HCl (Narcan) 0.1 mg IVPUSH Q5M PRN PRN Reason: Oversedation Ondansetron HCl (Zofran) 4 mg IVPUSH Q6H PRN PRN Reason: Nausea/Vomiting Oxycodone/Acetaminophen (Percocet 325-5 Mg) 1 - 2 tab PO Q4H PRN PRN Reason: Pain Last Admin: 12/01/18 03:05 Dose: 1 tab Admin: 11/30/18 18:06 Dose: 2 tab Admin: 11/30/18 12:43 Dose: 2 tab Ropinirole Er 12 Mg 0 each PO QAM [facility] Carbidopa/Levodopa (25-250 Mg Tab Ptom) 0 each PO 1500,2000 [facility] Last Admin: 11/30/18 20:29 Dose: 1 each Admin: 11/30/18 15:01 Dose: 1 each Admin: 11/30/18 15:01 Dose: Not Given Carbidopa/Levodopa (25-250 Mg Tab Ptom) 0 each PO 0100,0600,1000 [facility] Last Admin: 12/01/18 05:52 Dose: 1 each Admin: 12/01/18 00:17 Dose: 1 each Rivaroxaban (Xarelto) 10 mg PO DAILY [facility] Senna (Senna) 8.6 mg PO BID PRN PRN Reason: Constipation Sertraline HCl (Zoloft) 100 mg PO DAILY [facility] Simvastatin (Zocor) 20 mg PO BEDTIME [facility] Last Admin: 11/30/18 20:29 Dose: 20 mg - Assessment Assessment (Free Text/Narrative):: POD#1 - right TKA - Plan Plan (Free Text/Narrative):: 1. Xarelto, TEDs, frequent mobility. 2. Hgb 13.9. 3. Discharge to home today if cleared by Hospitalist service and therapies. The pt's case was discussed with Dr. Camargo.
[2018-12-01] MEDS: Famotidine 20 MG Tab PO SCH (08:48)
[2018-12-01] MEDS: Docusate Sodium 100 MG Cap PO SCH (08:49)
[2018-12-01] MEDS ORDERED: Aspirin 81 MG Tab.Chew PO SCH (09:00)
[2018-12-01] MEDS ORDERED: Magnesium Oxide 400 MG Tab PO SCH (09:00)
[2018-12-01] MEDS ORDERED: Rivaroxaban 10 MG Tab PO SCH (09:00)
[2018-12-01] MEDS ORDERED: Cholecalciferol (Vitamin D3) 5,000 UNIT Tab PO SCH (09:00)
[2018-12-01] MEDS ORDERED: Sertraline 50 MG Tab PO SCH (09:00)
[2018-12-01] MEDS: Ketorolac 15 MG/ML SDV IVPUSH PRN (09:32)
--- NOTE | 2018-12-02 09:30 | PCM.DCSUM1 ---
Discharge Summary - Hospital Course Brief History: Jg is a 62 yo male who underwent right TKA with Dr. Camargo on . The procedure was completed under spinal anesthesia with MAC. The pt tolerated the procedure well and was admitted to the Medical-Surgical Unit. The pt received Ancef jarod-operatively. He participated in P.T. and O.T. and progressed well. He was allowed to WBAT and used a FWW for mobility. The pt's surgical wound was dressed with a Mepilex dressing and remained clean and dry. On POD#1, the pt was started on Xarelto 10mg PO daily for VTE prophylaxis. The pt used TEDs and SCDs also. On POD#1, the pt's hemoglobin was 13.9. Medical management was provided by the Hospitalist service and the pt's hospital course was uneventful. On POD#1, the pt was deemed appropriate for discharge to home with his . - Discharge Data Discharge Date: 12/01/18 Discharge Disposition: Home, Self-Care 01 Condition: Good - Referral to Home Health Primary Care Physician: Castro Tovar MD - Patient Summary/Data Consults: Consultations 11/30/18 06:36 OT Evaluation and Treatment [CONS] Routine PT Evaluation and Treatment [CONS] Routine 11/30/18 06:43 Consult to Physician [CONS] Routine - Patient Instructions Diet: Usual Diet as Tolerated Activity: Apply Ice, As Tolerated, Elevate Extremity, Full Weight Bearing Driving: Do Not Drive Showering/Bathing: May Shower Wound/Incision Care: Keep Operative Site/Wound Site Clean and Dry, Do NOT Change Dressing Notify Provider of: Fever, Increased Pain, Swelling and Redness, Drainage, Nausea and/or Vomiting Other/Special Instructions: Please get up and moving around EVERY HOUR while awake. This helps to prevent blood clots. Please use your walker and have help with mobility as needed. Take a short walk in your home every hour while awake. The Xarelto blood thinner medication daily as directed. At home, please complete the exercises that you learned during the Hospital stay. Schedule for physical therapy. Use the pain medication as needed. The medication may cause drowsiness and constipation. Contact your primary care provider for instructions if you are constipated. You may use a stool softener like docusate sodium or Colace 100mg twice daily and/or a laxative like Miralax daily for constipation. Increase your water and fiber intake while you are using the pain medication. Discontinue use of the pain medication as soon as able. Please do not use other medications that may cause drowsiness (other pain medications, anxiety pills, cold medications, sleeping pills, etc) while using the prescription pain medication. Do not use alcohol while using the pain medication. You may use acetaminophen or Tylenol for pain management, however, please ensure you are not using over 4000 mg or 4 grams of acetaminophen per day from all sources. Your pain medication has 325mg of acetaminophen per tablet. At this time, please do not use ibuprofen (Motrin, Advil) or naproxen (Aleve) for pain management as you are using the Xarelto. When the Xarelto course is completed in 4 to 6 weeks, you could use ibuprofen or naproxen for pain management (if this is allowed by your primary care provider). Wear the NASREEN hose during the day and you may remove these at night. Elevate the limb to decrease swelling. Place ice to the area often. Place a towel between your skin and the blue pad. Use the incentive spirometer often. Take deep breaths throughout the day. Please keep the dressing in place until follow-up. Notify the Clinic if the dressing becomes saturated. Increase your protein intake while you are healing. If you have diabetes, please closely monitor your blood sugars and notify your primary care provider with abnormal values. Elevated blood sugars increases the risk of infection. Call the Clinic with questions or concerns - [phone]. - Discharge Plan *PRESCRIPTION DRUG MONITORING PROGRAM REVIEWED*: No *COPY OF PRESCRIPTION DRUG MONITORING REPORT IN PATIENT ELIEZER: No Prescriptions/Med Rec: Acetaminophen/oxyCODONE [Percocet 325-5 MG] 1 - 2 tab PO Q4H PRN #60 tablet PRN Reason: Pain Cyclobenzaprine [Flexeril] 10 mg PO BID PRN #30 tablet PRN Reason: Spasms Rivaroxaban [Xarelto] 10 mg PO DAILY #30 tablet Home Medications: Home Meds Aspirin [[place] Aspirin] 81 mg PO DAILY 11/27/18 [History] Cholecalciferol (Vitamin D3) [Vitamin D3] 5,000 unit PO DAILY 11/27/18 [History] Losartan [Cozaar] 50 mg PO DAILY 11/27/18 [History] Magnesium Oxide [Magnesium] 500 mg PO DAILY 11/27/18 [History] Sertraline HCl 100 mg PO DAILY 11/27/18 [History] Simvastatin 20 mg PO DAILY 11/27/18 [History] rOPINIRole HCl [Ropinirole ER] 12 mg PO QAM 11/27/18 [History] Carbidopa/Levodopa [Carbidopa-Levodopa 25-250] 1 tab PO 5XDAY 11/30/18 [History] Acetaminophen/oxyCODONE [Percocet 325-5 MG] 1 - 2 tab PO Q4H PRN #60 tablet [Rx] Bisacodyl [Dulcolax] 5 mg PO DAILY PRN tablet 12/01/18 [Rx] Cyclobenzaprine [Flexeril] 10 mg PO BID PRN #30 tablet 12/01/18 [Rx] Docusate Sodium [Colace] 100 mg PO BID cap 12/01/18 [Rx] Famotidine [Pepcid] 20 mg PO Q12H tablet 12/01/18 [Rx] Magnesium Hydroxide [Milk of Magnesia] 30 ml PO BID PRN cup 12/01/18 [Rx] Rivaroxaban [Xarelto] 10 mg PO DAILY #30 tablet 12/01/18 [Rx] Sennosides [Senna] 8.6 mg PO BID PRN tablet 12/01/18 [Rx] Patient Handouts: Total Knee Replacement, [id number] Referrals: Mary Franklin PA-C [Physician Project Management Analyst] - (Please follow-up with [facility] on December 08 at 1:15am, December 16 at 2:45, & January 08 11:45.) - Discharge Summary/Plan Comment DC Time >30 min.: No - Patient Data Vitals - Most Recent: Last Vital Signs Temp 98.6 F 12/01/18 13:07 Pulse 90 12/01/18 13:07 Resp 19 12/01/18 13:07 BP 128/62 12/01/18 13:07 Pulse Ox 92 L 12/01/18 13:07 Weight - Most Recent: 256 lb 1.6 oz I&O - Last 24 hours: Intake & Output 12/01/18 12/02/18 12/02/18 22:59 06:59 14:59 Intake Total 360 Balance 360 Med Orders - Current: Current Medications Discontinued Medications Acetaminophen (Tylenol) 975 mg PO ONETIME [facility] Acetaminophen (Tylenol) 975 mg PO ONETIME [facility] Stop: 11/30/18 13:00 Last Admin: 11/30/18 06:26 Dose: 975 mg Aspirin (Aspirin) 81 mg PO DAILY [facility] Last Admin: 12/01/18 08:46 Dose: 81 mg Bisacodyl (Dulcolax) 5 mg PO DAILY PRN PRN Reason: Constipation Bupivacaine HCl (Sensorcaine-Mpf 0.25%) Confirm Administered Dose 10 ml .ROUTE .STK-MED ONE Stop: 11/30/18 06:39 Last Admin: 11/30/18 08:45 Dose: 30 ml Bupivacaine HCl (Sensorcaine-Mpf 0.25%) Confirm Administered Dose 20 ml .ROUTE .STK-MED ONE Stop: 11/30/18 06:59 Bupivacaine HCl (Sensorcaine-Mpf 0.25%) Confirm Administered Dose 10 ml .ROUTE .STK-MED ONE Stop: 11/30/18 07:02 Cefazolin Sodium (Ancef) Confirm Administered Dose 2 gm .ROUTE .STK-MED ONE Stop: 11/30/18 06:39 Last Admin: 11/30/18 08:41 Dose: 2 gm Cefazolin Sodium (Ancef) Confirm Administered Dose 2 gm .ROUTE .STK-MED ONE Stop: 11/30/18 07:06 Cholecalciferol (Vitamin D3) 5,000 unit PO DAILY [facility] Last Admin: 12/01/18 08:48 Dose: 5,000 unit Morphine Sulfate 8 mg/Epinephrine HCl 0.3 mg/Cefuroxime Sodium 750 mg/Ketorolac Tromethamine 30 mg/Sodium Chloride 27.9 ml 0 mg .XX ONETIME ONE Stop: 11/30/18 07:46 Last Admin: 11/30/18 15:06 Dose: Not Given Cyclobenzaprine HCl (Flexeril) 10 mg PO BID PRN PRN Reason: Spasms Last Admin: 12/01/18 12:48 Dose: 10 mg Diphenhydramine HCl (Benadryl) 25 mg IVPUSH Q6H PRN PRN Reason: Pruritis Stop: 11/30/18 16:00 Docusate Sodium (Colace) 100 mg PO BID [facility] Last Admin: 12/01/18 08:49 Dose: 100 mg Epinephrine HCl (Adrenalin) Confirm Administered Dose 1 mg .ROUTE .STK-MED ONE Stop: 11/30/18 07:32 Famotidine (Pepcid) 20 mg PO Q12H [facility] Last Admin: 12/01/18 08:48 Dose: 20 mg Lactated Ringer's (Ringers, Lactated) 1,000 mls @ 125 mls/hr IV ASDIRECTED [facility] Stop: 11/30/18 23:00 Last Admin: 11/30/18 06:49 Dose: 125 mls/hr Cefazolin Sodium/Dextrose 2 gm (/ Premix) 50 mls @ 100 mls/hr IV Q8H [facility] Stop: 12/01/18 07:29 Last Admin: 12/01/18 06:01 Dose: 100 mls/hr Lactated Ringer's (Ringers, Lactated) Confirm Administered Dose 1,000 mls @ as directed .ROUTE .STK-MED ONE Stop: 11/30/18 07:06 Lidocaine HCl (Xylocaine-Mpf 1%) Confirm Administered Dose 4 mls @ as directed .ROUTE .STK-MED ONE Stop: 11/30/18 07:07 Iodine (Iodine 2% Mild Tincture) Confirm Administered Dose 30 ml .ROUTE .STK- MED ONE Stop: 11/30/18 06:39 Last Admin: 11/30/18 08:39 Dose: 18 ml Ketorolac Tromethamine (Toradol) 15 mg IVPUSH Q6H PRN PRN Reason: Pain Last Admin: 12/01/18 09:32 Dose: 15 mg Ketorolac Tromethamine (Toradol) Confirm Administered Dose 30 mg .ROUTE .STK- MED ONE Stop: 11/30/18 07:06 Lidocaine/Sodium Bicarbonate (Buffered Lidocaine 1% In Ns 8.4%) 0.25 ml IDERM ONETIME PRN PRN Reason: Prior to IV Start Stop: 11/30/18 18:00 Last Admin: 11/30/18 06:49 Dose: 0.25 ml Magnesium Hydroxide (Milk Of Magnesia) 30 ml PO BID PRN PRN Reason: Constipation Last Admin: 12/01/18 05:52 Dose: 30 ml Magnesium Oxide (Magnesium Oxide) 400 mg PO DAILY [facility] Last Admin: 12/01/18 08:44 Dose: 400 mg Midazolam HCl (Versed 1 Mg/Ml) Confirm Administered Dose 2 mg .ROUTE .STK-MED ONE Stop: 11/30/18 07:07 Morphine Sulfate (Morphine) 2 mg IVPUSH Q2H PRN PRN Reason: Breakthrough Pain Naloxone HCl (Narcan) 0.1 mg IVPUSH Q5M PRN PRN Reason: Oversedation Ondansetron HCl (Zofran) 4 mg IVPUSH Q6H PRN PRN Reason: Nausea/Vomiting Ondansetron HCl (Zofran) Confirm Administered Dose 4 mg .ROUTE .STK-MED ONE Stop: 11/30/18 07:06 Ondansetron HCl (Zofran) 4 mg IVPUSH ONETIME PRN PRN Reason: Nausea/Vomiting Stop: 11/30/18 13:00 Oxycodone HCl (Oxycontin) 10 mg PO ONETIME [facility] Oxycodone HCl (Oxycontin) 10 mg PO ONETIME [facility] Stop: 11/30/18 13:00 Last Admin: 11/30/18 06:27 Dose: 10 mg Oxycodone/Acetaminophen (Percocet 325-5 Mg) 1 - 2 tab PO Q4H PRN PRN Reason: Pain Last Admin: 12/01/18 13:09 Dose: 2 tab Carbidopa/Levodopa (25-250 Mg Tab) 0 each PO QID [facility] Last Admin: 11/30/18 11:44 Dose: 1 each Ropinirole Er 12 Mg 0 each PO QAM [facility] Last Admin: 12/01/18 08:40 Dose: 1 each Carbidopa/Levodopa (25-250 Mg Tab Ptom) 0 each PO 1500,2000 [facility] Last Admin: 12/01/18 15:44 Dose: 1 each Carbidopa/Levodopa (25-250 Mg Tab Ptom) 0 each PO 0100,0600,1000 [facility] Last Admin: 12/01/18 09:03 Dose: 1 each Pregabalin (Lyrica) 50 mg PO ONETIME [facility] Stop: 11/30/18 13:00 Last Admin: 11/30/18 06:26 Dose: 50 mg Propofol (Diprivan 20 Ml) Confirm Administered Dose 400 mg .ROUTE .STK-MED ONE Stop: 11/30/18 07:06 Propofol (Diprivan 20 Ml) Confirm Administered Dose 200 mg .ROUTE .STK-MED ONE Stop: 11/30/18 07:39 Rivaroxaban (Xarelto) 10 mg PO DAILY [facility] Last Admin: 12/01/18 08:46 Dose: 10 mg Ropivacaine (Naropin 0.5%) Confirm Administered Dose 30 ml .ROUTE .STK-MED ONE Stop: 11/30/18 07:32 Senna (Senna) 8.6 mg PO BID PRN PRN Reason: Constipation Sertraline HCl (Zoloft) 100 mg PO DAILY [facility] Last Admin: 12/01/18 08:45 Dose: 100 mg Simvastatin (Zocor) 20 mg PO BEDTIME [facility] Last Admin: 11/30/18 20:29 Dose: 20 mg Sodium Chloride (Saline Flush) 10 ml FLUSH ASDIRECTED PRN PRN Reason: Keep Vein Open Stop: 11/30/18 23:00 Tranexamic Acid (Cyklokapron) Confirm Administered Dose 1,000 mg .ROUTE .STK- MED ONE Stop: 11/30/18 06:38 Last Admin: 11/30/18 08:52 Dose: 1,000 mg Vancomycin HCl (Vancomycin) Confirm Administered Dose 1 gm .ROUTE .STK-MED ONE Stop: 11/30/18 06:39 Last Admin: 11/30/18 08:49 Dose: 1 gm
--- NOTE | 2018-12-04 10:06 | PCM.OPNOTE ---
- General Post-Op/Procedure Note Date of Surgery/Procedure: 11/30/18 Operative Procedure(s): right total knee arthroplasty Pre Op Diagnosis: right knee osteoarthrosis Post-Op Diagnosis: Same Anesthesia Technique: Local, MAC, Spinal Primary Surgeon: Alek Camargo Anesthesia Provider: Jodi Hernandez Dairy Consultant: Mary Franklin Dairy Consultant: Claudette Champion in mLs: 5 Complications: None Condition: Good Free Text/Narrative:: size 6/6 9mm 35x10 cemented
--- NOTE | 2018-12-04 11:17 | OR ---
DATE OF OPERATION: 11/30/2018 SURGEON: Alek Camargo MD OPERATION PERFORMED: Right total knee arthroplasty. PREOPERATIVE DIAGNOSIS: Right knee osteoarthrosis. POSTOPERATIVE DIAGNOSIS: Right knee osteoarthrosis. ANESTHESIA: Local MAC with spinal. ANESTHESIA PROVIDER: Mckenzie Mock. ASSISTANTS: Mary Franklin PA-C; and Clauedtte Champion LPN. ESTIMATED BLOOD LOSS: 5 mL. COMPLICATIONS: None. CONDITION: Stable. IMPLANTS: 1. Marshall size 6 cemented PS femur. 2. [place] size 6 cemented Pride tibial base plate. 3. Marshall size 6, 9 mm PS X3 polyethylene insert. 4. [place] size 35 x 10 mm cemented asymmetric patella. DESCRIPTION OF PROCEDURE: The patient was identified in the preop holding area. Proper site was marked and identified by the surgeon. The patient was taken back to the operating theater. After adequate anesthesia, the patient's right lower extremity had a nonsterile tourniquet applied and it was sterilely prepped and draped in the usual sterile fashion. OR time-out was performed. The patient received 2 g IV Ancef. At this time, the right lower extremity was exsanguinated. Tourniquet was insufflated to 300 mmHg. Standard medial parapatellar incision was made. Medial parapatellar arthrotomy was created. Deep fibers of the MCL were raised and anterior fat pad was resected. At this time, attention was turned to the patella. Patella measured 24, it was resected to a 14 for a 35 x 10 mm patella. Drill holes were then drilled and found to be in adequate position. The drill was then drilled in the distal femur and the intramedullary distal femoral cutting guide was then placed. 8 mm was resected off the distal femur and was found to be an adequate resection. Sizing guide was placed. It was found to be a size 6 cemented PS femur that was shown on the implant record at the beginning of this dictation. The drill holes were drilled for the epicondylar axis using Whitesides line and epicondyles as reference. At this time, the 4-in-1 cutting block was placed. An anterior posterior and anterior and posterior chamfer cuts were then completed. Box cut was completed at this time. Attention was turned to the tibia. The posterior medial lateral retractors were placed. The extramedullary tibial guide was placed. It was placed in the old footprint of the ACL. It was aligned with the center of the ankle and 0 degrees of slope, 9 mm was then resected off the unaffected side. There was found to be an acceptable reduction. At this time, posterior osteophytes were removed along with medial and lateral meniscus. A trial implant was placed with a correct sized tibia that was mentioned at the beginning of the dictation. A Marshall size 6, 9 mm PS X3 polyethylene insert was then placed. The patient's knee was brought through range of motion. The patella was tracking centrally and was stable to varus and valgus stress. Alignment was found to be roughly at 0 degrees. The tibia was stamped and drilled in proper rotation. The universal tibial base plate was impacted in place. Next, the Marshall size 6 cemented PS femur impacted into place and the [place] size 6, 9 mm PS X3 polyethylene insert was placed. The patient's knee was brought into full extension. Excess cement was removed. The patella was then cemented in place at this time. One liter dilute Betadine solution was irrigated through the knee along with 3 L of pulse lavage irrigation with Ancef. Periarticular injection was then completed. The patient's knee was brought through a range of motion. Once the cement had time to set up and it was found to be stable to varus valgus stress, the patella was tracking centrally with full range of motion. At this time, a #2 barbed suture was used for closure of the medial parapatellar arthrotomy. Topical tranexamic acid was placed. 2-0 Vicryl was used subcutaneously, Prineo was used for the skin. The patient tolerated the procedure well and was sent to the PACU in stable condition. ALCIDES /[id number] MALVIN
== END 2018-12-01 16:26 | disposition home or self-care (01) | DRG 302 ==
LOC: JD.SDS 06:02 → JD.MS 06:05 → JD.SDS 09:55 → JD.MS 09:55
PROVIDERS: ADMIT Orthopaedic Surgery; ATTEND Orthopaedic Surgery
PROC: 0SRC0J9 Replacement of Right Knee Joint with Synthetic Substitute, Cemented, Open Approach (ICD-10-PCS; principal; 2018-11-30)
PROC: 3E0T3BZ Introduction of Anesthetic Agent into Peripheral Nerves and Plexi, Percutaneous Approach (ICD-10-PCS; 2018-11-30)
DX: M17.11 Unilateral primary osteoarthritis, right knee (principal); G20 Parkinson's disease; F41.9 Anxiety disorder, unspecified; G89.29 Other chronic pain; I10 Essential (primary) hypertension; F32.9 Major depressive disorder, single episode, unspecified; E66.9 Obesity, unspecified; N32.81 Overactive bladder; R32 Unspecified urinary incontinence; G25.81 Restless legs syndrome; Z90.89 Acquired absence of other organs; Z87.891 Personal history of nicotine dependence; Z68.35 Body mass index [BMI] 35.0-35.9, adult; Z79.82 Long term (current) use of aspirin; Z79.899 Other long term (current) drug therapy; G89.18 Other acute postprocedural pain
CPT/HCPCS: 01402; 36415; 51798; 64450; 73560-26-RT; 73560-RT; 80053; 85027; 85610; 85730; 87641; 94760; 97110-GP; 97116-GP; 97161-GP; 97165-GO; 97535-GO; A9270-GY; C1713; C1776; J0171; J0690; J0697; J1885; J2001; J2250; J2270; J2405; J2704; J2795; J3370; J3490; J7120

== ENCOUNTER 2019-01-08 15:52 | Emergency (ER) | payer MEDICARE, BC ==
[2019-01-08] MEDS ORDERED: Sodium Chloride 0.9% 10 ML Syringe FLUSH PRN (16:55)
--- NOTE | 2019-01-08 17:15 | EDM.PDOC ---
ED HPI GENERAL MEDICAL PROBLEM - General Chief Complaint: Cardiovascular Problem Stated Complaint: SENT BY ULTRASOUND FOR POSITIVE DVT Time Seen by Provider: 01/08/19 16:46 Source of Information: Reports: Patient, RN Notes Reviewed - History of Present Illness INITIAL COMMENTS - FREE TEXT/NARRATIVE: 63-year-old male has been sent over from the or for clinic due to finding of DVT right lower extremity he had a routine 5 week postop visit status post right knee replacement. He was found to have markedly increased swelling of the right lower leg in particular but also moderate swelling of the right knee. Ultrasound was done of the right lower extremity which did show DVT. Have not yet seen that report for details. He was sent here with the suggestion that he be admitted to the hospital medical service due to underlying history Parkinson' s disease, some other comorbidities not felt to be a good candidate to treat outpatient at home by his Orthopedist. At this time he has no chest pain or shortness of breath. His leg discomfort is relatively mild. States he was on some type of a blood thinner medication up until about 8-10 days ago and since then has been on daily aspirin. No known history of blood clots. Right Lower Leg Pain Score (Numeric/FACES): 0 - Related Data Allergies Allergy/AdvReac Type Severity Reaction Status Date / Time No Known Allergies Allergy Verified 11/30/18 10:46 Home Meds: Home Meds Aspirin [[place] Aspirin] 81 mg PO DAILY 11/27/18 [History] Cholecalciferol (Vitamin D3) [Vitamin D3] 5,000 unit PO DAILY 11/27/18 [History] Losartan [Cozaar] 50 mg PO DAILY 11/27/18 [History] Magnesium Oxide [Magnesium] 500 mg PO DAILY 11/27/18 [History] Sertraline HCl 100 mg PO DAILY 11/27/18 [History] Simvastatin 20 mg PO DAILY 11/27/18 [History] rOPINIRole HCl [Ropinirole ER] 12 mg PO QAM 11/27/18 [History] Carbidopa/Levodopa [Carbidopa-Levodopa 25-250] 1 tab PO 5XDAY 11/30/18 [History] Acetaminophen/oxyCODONE [Percocet 325-5 MG] 1 - 2 tab PO Q4H PRN #60 tablet [Rx] Bisacodyl [Dulcolax] 5 mg PO DAILY PRN tablet 12/01/18 [Rx] Cyclobenzaprine [Flexeril] 10 mg PO BID PRN #30 tablet 12/01/18 [Rx] Docusate Sodium [Colace] 100 mg PO BID cap 12/01/18 [Rx] Famotidine [Pepcid] 20 mg PO Q12H tablet 12/01/18 [Rx] Magnesium Hydroxide [Milk of Magnesia] 30 ml PO BID PRN cup 12/01/18 [Rx] Rivaroxaban [Xarelto] 10 mg PO DAILY #30 tablet 12/01/18 [Rx] Sennosides [Senna] 8.6 mg PO BID PRN tablet 12/01/18 [Rx] Apixaban [Eliquis] 10 mg PO BID #14 tablet 01/08/19 [Rx] Past Medical History HEENT History: Reports: None Cardiovascular History: Reports: High Cholesterol Respiratory History: Reports: Other (See Below) Other Respiratory History: wheezing Genitourinary History: Reports: Urinary Incontinence, Other (See Below) Other Genitourinary History: frequency ENDOCRINOLOGY TEACHER History: Reports: None Musculoskeletal History: Reports: Osteoarthritis Neurological History: Reports: Parkinson's Psychiatric History: Reports: Anxiety Endocrine/Metabolic History: Reports: None Hematologic History: Reports: None Immunologic History: Reports: None Oncologic (Cancer) History: Reports: None - Past Surgical History Head Surgeries/Procedures: Reports: None HEENT Surgical History: Reports: None Cardiovascular Surgical History: Reports: None Respiratory Surgical History: Reports: None GI Surgical History: Reports: Colonoscopy Male Surgical History: Reports: None Endocrine Surgical History: Reports: None Other Neurological Surgeries/Procedures: back surgery- discectomy Musculoskeletal Surgical History: Reports: None, Knee Replacement Other Musculoskeletal Surgeries/Procedures:: right knee-nov Oncologic Surgical History: Reports: None Dermatological Surgical History: Reports: Other (See Below) Social & Family History - Family History Family Medical History: Noncontributory - Tobacco Use Smoking Status *Q: Former Smoker Used Tobacco, but Quit: Yes Month/Year Tobacco Last Used: 20 yr - Caffeine Use Caffeine Use: Reports: Coffee, Soda - Recreational Drug Use Recreational Drug Use: No ED ROS GENERAL - Review of Systems Review Of Systems: See Below Constitutional: Denies: Fever, Chills, Diaphoresis HEENT: Reports: No Symptoms Respiratory: Denies: Shortness of Breath, Pleuritic Chest Pain Cardiovascular: Denies: Chest Pain GI/Abdominal: Denies: Abdominal Pain, Nausea, Vomiting Musculoskeletal: Reports: Leg Pain (minimal discomfort R lower leg) Skin: Denies: Rash, Erythema Neurological: Denies: Numbness, Tingling, Difficulty Walking, Weakness ED EXAM, GENERAL - Physical Exam Exam: See Below General Appearance: Alert, No Apparent Distress Eye Exam: Bilateral Eye: PERRL Head: Atraumatic Neck: Supple, Full Range of Motion, Other (no JVD) Respiratory/Chest: No Respiratory Distress, Lungs Clear, Normal Breath Sounds Cardiovascular: Regular Rate, Rhythm Peripheral Pulses: 4+: Dorsalis Pedis (R) GI/Abdominal: Soft Extremities: Normal Range of Motion, Pedal Edema (there is moderate diffuse swelling of R knee, R lower leg, calf nontender, no warmth or erythema) Neurological: Alert, Oriented, No Motor/Sensory Deficits Skin Exam: Warm, Dry, Normal Color, Other (LLE not swollen or tender) EKG INTERPRETATION EKG Date: 01/08/19 Rhythm: NSR [place]: Normal P-Wave: Present QRS: Normal ST-T: Other (T-wave inversion in lead III, no ST elevation or depression.) Course - Vital Signs Last Recorded V/S: Last Vital Signs Temp 98.0 F 01/08/19 16:07 Pulse 74 01/08/19 16:07 Resp 20 01/08/19 16:07 BP 123/78 01/08/19 16:07 Pulse Ox 93 L 01/08/19 16:07 - Orders/Labs/Meds Orders: Active Orders 24 hr Category Date Time Status EKG 12 Lead [EKG Documentation Completion] [RC] STAT Care 01/08/19 16:54 Active Peripheral IV Care [RC] . DIRECTED Care 01/08/19 16:56 Active Chest 1V Frontal [CR] Stat Exams 01/08/19 16:54 Taken Peripheral IV Insertion Adult [OM.PC] Stat Oth 01/08/19 16:56 Ordered Labs: Laboratory Tests 01/08/19 01/08/19 01/08/19 Range/Units 17:10 17:10 17:10 WBC 5.33 (4.23-9.07) K/mm3 RBC 4.40 L (4.63-6.08) M/mm3 Hgb 13.1 L (13.7-17.5) gm/dl Hct 41.3 (40.1-51.0) % MCV 93.9 H (79.0-92.2) fl MCH 29.8 (25.7-32.2) pg MCHC 31.7 L (32.2-35.5) g/dl RDW Std Deviation 44.9 H (35.1-43.9) fL Plt Count 228 (163-337) K/mm3 MPV 8.9 L (9.4-12.3) fl Neut % (Auto) 72.0 H (34.0-67.9) % Lymph % (Auto) 17.6 L (21.8-53.1) % [place] % (Auto) 7.7 (5.3-12.2) % Eos % (Auto) 1.7 (0.8-7.0) Baso % (Auto) 0.8 (0.1-1.2) % Neut # (Auto) 3.84 (1.78-5.38) K/mm3 Lymph # (Auto) 0.94 L (1.32-3.57) K/mm3 [place] # (Auto) 0.41 (0.30-0.82) K/mm3 Eos # (Auto) 0.09 (0.04-0.54) K/mm3 Baso # (Auto) 0.04 (0.01-0.08) K/mm3 PT 11.2 (9.7-12.0) SECONDS INR 1.03 APTT (22-31) SECONDS Sodium 139 (136-145) mEq/L Potassium 3.9 (3.5-5.1) mEq/L Chloride 105 (98-107) mEq/L Carbon Dioxide 27 (21-32) mEq/L Anion Gap 10.9 (5-15) BUN 20 H (7-18) mg/dL Creatinine 1.0 (0.7-1.3) mg/dL Est Cr Clr Drug Dosing 78.44 mL/min Estimated GFR (MDRD) > 60 (>60) mL/min BUN/Creatinine Ratio 20.0 H (14-18) Glucose 95 (80-115) mg/dL Calcium 8.8 (8.5-10.1) mg/dL Total Bilirubin 0.7 (0.2-1.0) mg/dL AST 16 (15-37) U/L ALT 15 L (16-63) U/L Alkaline Phosphatase 70 (46-116) U/L Total Protein 7.0 (6.4-8.2) g/dl Albumin 3.5 (3.4-5.0) g/dl Globulin 3.5 gm/dL Albumin/Globulin Ratio 1.0 (1-2) 01/08/19 Range/Units 17:10 WBC (4.23-9.07) K/mm3 RBC (4.63-6.08) M/mm3 Hgb (13.7-17.5) gm/dl Hct (40.1-51.0) % MCV (79.0-92.2) fl MCH (25.7-32.2) pg MCHC (32.2-35.5) g/dl RDW Std Deviation (35.1-43.9) fL Plt Count (163-337) K/mm3 MPV (9.4-12.3) fl Neut % (Auto) (34.0-67.9) % Lymph % (Auto) (21.8-53.1) % [place] % (Auto) (5.3-12.2) % Eos % (Auto) (0.8-7.0) Baso % (Auto) (0.1-1.2) % Neut # (Auto) (1.78-5.38) K/mm3 Lymph # (Auto) (1.32-3.57) K/mm3 [place] # (Auto) (0.30-0.82) K/mm3 Eos # (Auto) (0.04-0.54) K/mm3 Baso # (Auto) (0.01-0.08) K/mm3 PT (9.7-12.0) SECONDS INR APTT 27 (22-31) SECONDS Sodium (136-145) mEq/L Potassium (3.5-5.1) mEq/L Chloride (98-107) mEq/L Carbon Dioxide (21-32) mEq/L Anion Gap (5-15) BUN (7-18) mg/dL Creatinine (0.7-1.3) mg/dL Est Cr Clr Drug Dosing mL/min Estimated GFR (MDRD) (>60) mL/min BUN/Creatinine Ratio (14-18) Glucose (80-115) mg/dL Calcium (8.5-10.1) mg/dL Total Bilirubin (0.2-1.0) mg/dL AST (15-37) U/L ALT (16-63) U/L Alkaline Phosphatase (46-116) U/L Total Protein (6.4-8.2) g/dl Albumin (3.4-5.0) g/dl Globulin gm/dL Albumin/Globulin Ratio (1-2) Meds: Medications Discontinued Medications Generic Name Dose Route Start Last Admin Trade Name Freq PRN Reason Stop Dose Admin Sodium Chloride 10 ml 01/08/19 16:55 01/08/19 17:12 Saline Flush FLUSH 10 ml ASDIRECTED PRN Administration Keep Vein Open - Re-Assessments/Exams Free Text/Narrative Re-Assessment/Exam: 01/09/19 07:41 As noted he was just taken off of xarelto about 8 to 10 days ago, went to daily aspirin. The swelling of he R leg has come up over the past week to 10 days. US of LLE did show DVT in posterior tibial vein. I did consult with our Hospitalist, Dr Plaza regarding disposition. He is hemodynamically stable, no sx or findings to suggest PE. He feels it is appropriate to initiate outpatient treatment, recomends eliequis. Patient and his are comfortable with that. Will start him on eliquis 10 mg bid for 1 week and than go to 5 mg bid. Discharge instr. as documented. Departure - Departure Time of Disposition: 18:27 Disposition: Home, Self-Care 01 Condition: Fair Clinical Impression: DVT (deep venous thrombosis) Qualifiers: DVT location: lower extremity Affected thrombotic vein of extremity: tibial Chronicity: acute Laterality: right Qualified Code(s): I82.441 - Acute embolism and thrombosis of right tibial vein Prescriptions: Apixaban [Eliquis] 10 mg PO BID #14 tablet Instructions: Deep Vein Thrombosis Referrals: Alek Camargo MD [Primary Care Provider] - Forms: ED Department Discharge Additional Instructions: eliquis 10 twice daily for 1 week, first dose this evening, than 5 mg twice daily for 6 months. Keep leg elevated when sitting as discussed. Stop the daily aspirin. Continue other medications as prescribed. Follow up with Dr Brenadine Caravjal in about 5 to 7 days for recheck, call Friday morning for appt. Return to ED as needed if symptoms worsening in any way. - My Orders Last 24 Hours: My Active Orders 01/08/19 16:54 EKG 12 Lead [EKG Documentation Completion] [RC] STAT Chest 1V Frontal [CR] Stat 01/08/19 16:56 Peripheral IV Care [RC] . DIRECTED Peripheral IV Insertion Adult [OM.PC] Stat - Assessment/Plan Last 24 Hours: My Active Orders 01/08/19 16:54 EKG 12 Lead [EKG Documentation Completion] [RC] STAT Chest 1V Frontal [CR] Stat 01/08/19 16:56 Peripheral IV Care [RC] . DIRECTED Peripheral IV Insertion Adult [OM.PC] Stat
--- NOTE | 2019-01-09 12:52 | CR ---
Chest: Portable view of the chest was obtained. Comparison: No prior chest x-ray. Heart size is within normal limits for portable technique. Tortuous thoracic aorta is seen. Lungs are clear with no acute parenchymal change. Bony structures are grossly intact. Impression: 1. Nothing acute is appreciated on portable chest x-ray. Diagnostic code #1
== END 2019-01-08 18:48 | disposition home or self-care (01) ==
LOC: SUPCPDRO 15:52 → JD.ED 15:52
DX: I82.441 Acute embolism and thrombosis of right tibial vein (principal); G20 Parkinson's disease; E78.00 Pure hypercholesterolemia, unspecified; F41.9 Anxiety disorder, unspecified; Z79.82 Long term (current) use of aspirin; Z79.899 Other long term (current) drug therapy; Z96.651 Presence of right artificial knee joint; Z87.891 Personal history of nicotine dependence
CPT/HCPCS: 36415; 71045; 71045-26; 80053; 85025; 85610; 85730; 93005; 99284-25

== ENCOUNTER 2020-12-11 06:17 | Day surgery (SDC) | payer MEDICARE, OTHER ==
[~2020-12-11 06:17] MED LIST changes: -Acetaminophen 325 MG Tab PO SCH; -CARBIDOPA PO SCH; -LEVODOPA PO SCH; -Pregabalin 25 MG Cap PO SCH; -oxyCODONE ER 10 MG TAB.ER PO SCH
--- NOTE | 2020-12-11 06:28 | PCM.PREANE ---
Preanesthetic Assessment - Procedure Proposed Procedure: left total knee arthroplasty - Anesthesia/Transfusion/Family Hx Anesthesia History: Prior Anesthesia Without Reaction Family History of Anesthesia Reaction: No Transfusion History: No Prior Transfusion(s) - Review of Systems General: No Symptoms Pulmonary: No Symptoms Cardiovascular: Dyspnea on Exertion Gastrointestinal: No Symptoms Neurological: Numbness ("maybe a little in left foot") Other: Reports: Neck Pain, Depression - Physical Assessment NPO Status Date: 12/10/20 NPO Status Time: 00:00 Height: 1.8 m Weight: 111.7 kg ASA Class: 3 Mental Status: Alert & Oriented x3 Airway Class: Mallampati = 1 Dentition: Reports: Normal Dentition, [place](s), Bridge Thyro-Mental Finger Breadths: 2 Mouth Opening Finger Breadths: 3 ROM/Head Extension: Full Lungs: Clear to Auscultation, Normal Respiratory Effort Cardiovascular: Regular Rate, Regular Rhythm - Allergies Allergies/Adverse Reactions: Allergies Allergy/AdvReac Type Severity Reaction Status Date / Time No Known Allergies Allergy Verified 12/08/20 10:54 - Anesthesia Plan Pre-Op Medication Ordered: None - Acknowledgements Anesthesia Type Planned: Spinal, Regional Block (left femoral nerve block for post-op pain control) Pt an Appropriate Candidate for the Planned Anesthesia: Yes Alternatives and Risks of Anesthesia Discussed w Pt/Guardian: Yes Pt/Guardian Understands and Agrees with Anesthesia Plan: Yes PreAnesthesia Questionnaire HEENT History: Reports: Impaired Vision Cardiovascular History: Reports: High Cholesterol, Hypertension, Other (See Below) Other Cardiovascular History: Edema Respiratory History: Reports: Other (See Below) Other Respiratory History: wheezing Genitourinary History: Reports: Neurogenic Bladder, Renal Calculus, Urinary Incontinence, Other (See Below) Other Genitourinary History: frequency, bladder hypertonicity, neurogenic bladder FOAMITE MIXER History: Reports: None Musculoskeletal History: Reports: Back Pain, Chronic, Osteoarthritis Neurological History: Reports: Parkinson's Psychiatric History: Reports: Anxiety, Depression Endocrine/Metabolic History: Reports: None Hematologic History: Reports: None Immunologic History: Reports: None Oncologic (Cancer) History: Reports: None - Past Surgical History Head Surgeries/Procedures: Reports: None HEENT Surgical History: Reports: None Cardiovascular Surgical History: Reports: None Respiratory Surgical History: Reports: None GI Surgical History: Reports: Colonoscopy, Other (See Below) Other GI Surgeries/Procedures: Umbilical hernia Sx. Female Surgical History: Reports: None Male Surgical History: Reports: None Endocrine Surgical History: Reports: None Other Neurological Surgeries/Procedures: back surgery- discectomy Musculoskeletal Surgical History: Reports: None, Knee Replacement Other Musculoskeletal Surgeries/Procedures:: Right TKA-nov; low back sx Oncologic Surgical History: Reports: None Dermatological Surgical History: Reports: Other (See Below) - SUBSTANCE USE Tobacco Use Status *Q: Never Tobacco User Recreational Drug Use History: No - HOME MEDS Home Medications: Home Meds Aspirin [[place] Aspirin] 81 mg PO DAILY 11/27/18 [History] Cholecalciferol (Vitamin D3) [Vitamin D3] 5,000 unit PO DAILY 11/27/18 [History] Magnesium Oxide [Magnesium] 500 mg PO DAILY 11/27/18 [History] Simvastatin 20 mg PO DAILY 11/27/18 [History] rOPINIRole HCl [Ropinirole ER] 8 mg PO QAM 11/27/18 [History] Carbidopa/Levodopa [Carbidopa-Levodopa 25-250] 1 tab PO QID 11/30/18 [History] Magnesium Hydroxide [Milk of Magnesia] 30 ml PO BID PRN cup 12/01/18 [Rx] Sennosides [Senna] 8.6 mg PO BID PRN tablet 12/01/18 [Rx] bisacodyL [Dulcolax] 5 mg PO DAILY PRN tablet 12/01/18 [Rx] - CURRENT (IN HOUSE) MEDS Current Meds: Current Medications Morphine Sulfate 8 mg/Epinephrine HCl 0.3 mg/Cefuroxime Sodium 750 mg/Ketorolac Tromethamine 30 mg/Sodium Chloride 7.9 ml 0 mg .XX ASDIRECTED PRN PRN Reason: Pain Stop: 12/11/20 18:00 Lactated Ringer's (Ringers, Lactated) 1,000 mls @ 125 mls/hr IV ASDIRECTED FLY Stop: 12/11/20 23:00 Lidocaine/Sodium Bicarbonate (Lidocaine 1%/Sod Bicarbonate In Ns 8.4% 1 Ml Syringe) 0.25 ml IDERM ONETIME PRN PRN Reason: Prior to IV Start Stop: 12/11/20 18:00 Sodium Chloride (Sodium Chloride 0.9% 10 Ml Syringe) 10 ml FLUSH ASDIRECTED PRN PRN Reason: Keep Vein Open Stop: 12/11/20 18:00
[2020-12-11] MEDS ORDERED: Propofol 200 MG/20 ML SDV ONE ×3 (06:40→08:22)
[2020-12-11] MEDS ORDERED: fentaNYL 100 MCG/2 ML SDV ONE (06:41)
[2020-12-11] MEDS ORDERED: Midazolam 1 MG/ML 2 ML SDV ONE (06:41)
[2020-12-11] MEDS ORDERED: Lidocaine 1% 4 ML ONE (06:44)
[2020-12-11] MEDS ORDERED: ceFAZolin 1 GM Vial ONE (06:45)
[2020-12-11] MEDS: Morphine 8 MG, EPINEPHrine 0.3 MG, Cefuroxime 750 MG, Ketorolac 30 MG, Sodium Chloride ... PRN ×10 (08:26→08:42)
[2020-12-11] MEDS: Vancomycin 1 GM SDV ONE ×2 (08:26→08:48)
--- NOTE | 2020-12-11 09:15 | PCM.POSTAN ---
POST ANESTHESIA ASSESSMENT - MENTAL STATUS Mental Status: Alert, Oriented - VITAL SIGNS Vital Signs: Last Vital Signs Temp 37.1 C 12/11/20 06:30 Pulse 74 12/11/20 06:30 Resp 16 12/11/20 06:30 BP 140/94 H 12/11/20 06:30 Pulse Ox 95 12/11/20 06:30 - RESPIRATORY Respiratory Status: Respiratory Rate WNL, Airway Patent, O2 Saturation Stable - CARDIOVASCULAR CV Status: Pulse Rate WNL, Blood Pressure Stable - GASTROINTESTINAL GI Status: No Symptoms - PAIN Pain Score: 0 - POST OP HYDRATION Hydration Status: Adequate & Stable - OBSERVATIONS Free Text/Narrative:: no anesthesia complications noted
[2020-12-11] MEDS ORDERED: EPINEPHrine 1 MG/ML SDV ONE (09:19)
[2020-12-11] MEDS ORDERED: Ropivacaine 0.5% 5 MG/ML 30 ML SDV ONE (09:20)
--- NOTE | 2020-12-11 09:49 | PCM.SN.2 ---
- Free Text/Narrative Note: Left selective femoral nerve block at the adductor canal for post-procedure pain control under US guidance requested by Dr. Camargo. Time Out: 932 Start: 932 End: 938 Chart reviewed. Consent signed. Questions answered. Appropriate monitors applied. Time out performed. Left mid-shaft femur identified with ultrasound, scanning medially of femur, the femoral artery in the adductor canal visualized, and the femoral nerve located laterally to the artery. The skin was prepped lateral to the ultrasound probe with chlorahexadine times two. The 21ga 4 insulated block needle was inserted under direct ultrasound guidance into the adductor canal. 25mL of 0.5% ropivacaine with 1:200,000 epinephrine was injected circumferentially around the nerve with intermittent negative aspiration noted. Patient tolerated the procedure well. Sterile technique noted along with sterile gloves, mask, and sterile probe cover. See picture on progress note and vital signs on nurses notes. Block completed in PACU. Lb Sidhu CRNA Time Documentation
[2020-12-11] MEDS ORDERED: traMADol 50 MG Tab PO PRN (10:06)
[2020-12-11] MEDS ORDERED: Acetaminophen/HYDROcodone 325-5 MG Tab PO PRN (10:09)
--- NOTE | 2020-12-11 10:23 | CR ---
Left knee: AP and lateral views of the left knee were obtained. Comparison: Prior left knee CT exam of 11/28/20. Knee prosthesis is noted. Components are aligned. Soft tissue air is seen. Underlying bony structures show nothing else acute. Impression: 1. Satisfactory postoperative radiographic appearance of recently placed left knee prosthesis. Diagnostic code #2
--- NOTE | 2020-12-11 10:45 | PCM48HPAN ---
Post Anesthesia Note - EVALUATION WITHIN 48HRS OF ANESTHETIC Vital Signs in Normal Range: Yes Patient Participated in Evaluation: Yes Respiratory Function Stable: Yes Airway Patent: Yes Cardiovascular Function Stable: Yes Hydration Status Stable: Yes Pain Control Satisfactory: Yes Nausea and Vomiting Control Satisfactory: Yes Mental Status Recovered: Yes Vital Signs: Last Vital Signs Temp 37.1 C 12/11/20 10:30 Pulse 91 12/11/20 10:30 Resp 18 12/11/20 10:30 BP 133/76 12/11/20 10:30 Pulse Ox 91 L 12/11/20 10:30 - COMMENTS/OBSERVATIONS Free Text/Narrative:: no anesthesia complications noted
--- NOTE | 2020-12-26 07:09 | PCM.OPNOTE ---
- General Post-Op/Procedure Note Date of Surgery/Procedure: 12/11/20 Operative Procedure(s): left total knee arthroplasty with cate patric robotics Pre Op Diagnosis: left knee osteoarthrosis Post-Op Diagnosis: Same Anesthesia Technique: Local, MAC, Spinal Primary Surgeon: Alek Camargo Anesthesia Provider: Lb Sidhu Teacher Assistant: Mary Franklin Teacher Assistant: Claudette Champion EBL in mLs: 5 Complications: None Condition: Good Free Text/Narrative:: 08/20 9 35x10
--- NOTE | 2020-12-26 11:54 | OR ---
DATE OF OPERATION: 12/11/2020 SURGEON: Alek Camargo MD OPERATION PERFORMED: Left total knee arthroplasty with [place] [employer] robotics. PREOPERATIVE DIAGNOSIS: Left knee osteoarthrosis. POSTOPERATIVE DIAGNOSIS: Left knee osteoarthrosis. ANESTHESIA: Local MAC with spinal. ANESTHESIA PROVIDER: Alin Zuleta. ASSISTANTS: 1. Mary Franklin PA-C. 2. Claudette Champion LPN. ESTIMATED BLOOD LOSS: 5 mL. COMPLICATIONS: None. CONDITION: Stable. IMPLANT: 1. [place] size 6 cemented PS femur. 2. [place] size 6 cemented [place] tibial baseplate. 3. [place] size 6, 9 mm PS X3 polyethylene. 4. [place] size 35 x 10 mm cemented asymmetric patella. DESCRIPTION OF PROCEDURE: The patient was identified in the preop holding area. Proper site was marked and identified by the surgeon. The patient was taken back to the operating theater where after adequate anesthesia, the patient's left lower extremity had a nonsterile tourniquet applied and it was sterilely prepped and draped in the usual sterile fashion. OR time-out was performed. The patient received 2 g IV Ancef . Leg quevedo was then applied to the left lower extremity. At this time, the left lower extremity was exsanguinated. Tourniquet was insufflated to 250 mmHg . Standard anterior incision was made. Medial parapatellar arthrotomy was created. Deep fibers of the MCL were raised as well as anterior fat pad was resected. Attention was turned to the patella. Patella measured 25 and resected to a 15 for a 35 x 10 mm patella. Drill holes were then drilled. Attention was then turned to the femur. Two 4.0 pins were placed intra- incisionally for the [place] Tim[employer] robotic array and then 2 more were placed on the tibia 3 fingerbreadths below the tibial tubercle. The [place] Tim[employer] robotic arrays were placed on both the femur and the tibia then at this time as well as checkpoints on the femur and tibia. Hip center rotation was then obtained. The medial and lateral malleoli were marked. At this time, 40 points were obtained off the femur and the tibia for the [place] Tim[employer] robotic plan. The patient's knee was brought to full extension. Varus and valgus stresses were applied and then into 90 degrees of flexion with a curved osteotome. Varus and valgus stresses were applied. At this time, [employer] robotic plan was done to 20 mm gaps in both flexion and extension. [place] [employer] robotic arm was then brought in. A straight saw blade was then used for the tibial cut, the anterior femoral cut, the anterior chamfer cut, and the posterior femoral cut. All bony fragments were removed. Saw blade was then switched out and the distal femoral cut as well as the posterior chamfer cut was completed. At this time, medial and lateral menisci were resected as well as any posterior osteophytes. A 6 mm trial tibia was then placed, 6 mm trial femur was placed, and a 9 mm polyethylene trial liner was placed. The patient's knee was brought to full extension and flexion. Varus and valgus stresses were applied, was found to be stable with no instability. No signs of liftoff or loosening were noted. At this time, box cut was completed on the femur. The pins were removed from the femur and the tibia as well as the arrays and the checkpoints. Cement was mixed on the back table. All cut surfaces were irrigated with pulse lavage irrigation with Ancef and then completely dried. Once the cement was ready, the [place] size 6 mm cemented [place] tibial base plate having been previously stamped and drilled, was then cemented in place on the tibia. The [place] size 6 mm cemented femur was cemented into place. The patient had a [place] size 6, 9 mm polyethylene insert placed. The patient's knee was brought to full extension. Excess cement was removed. A [place] size 35 x 10 mm cemented asymmetric patella was then cemented into place. 1 L of pulse lavage irrigation with Ancef was irrigated through the knee along with 400 mL of Irrisept irrigation. Periarticular injection was completed. Topical tranexamic acid and vancomycin powder were applied. A #2 barbed suture was used for closure of the medial parapatellar arthrotomy in flexion. 2-0 Vicryl and Stratafix were used for subcutaneous closure. Prineo was used for cutaneous closure. The patient had a sterile soft dressing applied. The tibial holes were closed with nylon, and this was also covered with a sterile soft dressing. The patient had an RAY wrap applied and was sent to PACU in stable condition. The patient tolerated the procedure well. MMODAL /[id number]
== END 2020-12-11 12:20 | disposition home or self-care (01) ==
LOC: JD.SDS 06:17
PROVIDERS: ATTEND Orthopaedic Surgery
DX: M17.12 Unilateral primary osteoarthritis, left knee (principal); E78.00 Pure hypercholesterolemia, unspecified; I10 Essential (primary) hypertension; G89.18 Other acute postprocedural pain; F41.9 Anxiety disorder, unspecified; E66.3 Overweight; Z79.82 Long term (current) use of aspirin; Z79.899 Other long term (current) drug therapy; Z98.890 Other specified postprocedural states; Z87.891 Personal history of nicotine dependence; Z68.34 Body mass index [BMI] 34.0-34.9, adult
CPT/HCPCS: 27447; 73560; 97110; 97116; 97161; C1713; C1776; J0171; J0690; J0697; J1885; J2250; J2270; J2704; J2795; J3370; J7120; 01402; 64450; 76942; J3010